=== PATIENT | male | born 2000 ===

== ENCOUNTER 2022-04-17 14:16 | Emergency (ER) | payer OTHER ==
[~2022-04-17] VITALS: Ht 175.3 cm; Wt 77.1 kg
[2022-04-17] MEDS ORDERED: TUSNEL LIQUID178 ML PO (16:43)
[2022-04-17] MEDS ORDERED: ZITHROMAX500 MG PO (16:43)
[2022-04-17] MEDS ORDERED: MEDROLPACK PO (16:43)
[2022-04-17] MEDS ORDERED: SINUS RINSE ST1 EACH NASAL (16:45)
[2022-04-17] MEDS ORDERED: FLONASE ALLERG9.9 ML NASAL (16:45)
== END 2022-04-17 16:51 | disposition home or self-care (01) ==
LOC: ER 14:16
DX: J06.9 Acute upper respiratory infection, unspecified (principal); B34.9 Viral infection, unspecified; Z20.822 Contact with and (suspected) exposure to COVID-19